=== PATIENT | male | born 1975 ===

== ENCOUNTER 2025-03-26 17:40 | Emergency (ER) | payer OTHER, MEDICAID | END 2025-03-26 18:30 | LOC: FB.ED 17:40 | DX: S60.511A Abrasion of right hand, initial encounter (principal); F10.120 Alcohol abuse with intoxication, uncomplicated; Z79.899 Other long term (current) drug therapy; V49.49XA Driver injured in collision with other motor vehicles in traffic accident, initial encounter; Y93.89 Activity, other specified; Y90.9 Presence of alcohol in blood, level not specified | CPT/HCPCS: 99284 ==